=== PATIENT | male | born 1980 | race Caucasian/White ===

== ENCOUNTER 2017-09-25 16:21 | Emergency (ER) | payer BC ==
[2017-09-25] MEDS: TETRACAINE 0.5% OPHTH SOLUTION 4ML BOTTLE. OU (17:15)
[2017-09-25] MEDS: FLUORESCEIN OPHTH TEST STRIP. OU (17:16)
== END 2017-09-25 17:50 | disposition home or self-care (01) ==
LOC: ER 16:21
DX: H57.8 Other specified disorders of eye and adnexa (principal)
CPT/HCPCS: 99283